=== PATIENT | male | born 1945 | race Caucasian/White ===

== ENCOUNTER 2024-03-25 12:37 | Emergency (ER) | payer OTHER, BC ==
[~2024-03-25] VITALS: Ht 177.8 cm; Wt 80.7 kg
[2024-03-25 12:46] VITALS: BP_SYST 111; PULSE 70; RESP 18; TEMP 98.2; O2SAT 97
[2024-03-25 14:01] VITALS: BP_SYST 111; PULSE 70; RESP 18; TEMP 98.2; O2SAT 97
== END 2024-03-25 13:57 | disposition home or self-care (01) ==
LOC: SED 12:37
DX: Z71.1 Person with feared health complaint in whom no diagnosis is made (principal); E11.9 Type 2 diabetes mellitus without complications; I10 Essential (primary) hypertension; E78.5 Hyperlipidemia, unspecified; E78.00 Pure hypercholesterolemia, unspecified; Z85.46 Personal history of malignant neoplasm of prostate; Z98.890 Other specified postprocedural states
CPT/HCPCS: 99281